=== PATIENT | female | born 1955 | race Two or more races ===

== ENCOUNTER 2024-02-21 05:30 | Inpatient (IN) | payer MEDICAID ==
[~2024-02-21] VITALS: Ht 132.1 cm; Wt 61.9 kg
[2024-02-21 06:50] LABS: Basophils # (auto) 0.1 10 ^3/uL (0-0.2); Basophils % (auto) 0.7 % (0.0-2.0); Eosinophils # (auto) 0.1 10 ^3/uL (0-0.8); Eosinophils % (auto) 0.8 % (0.0-7.0); Hematocrit 44.2 % (36.0-46.0); Hemoglobin 14.7 g/dL (12.2-16.2); Lymphocytes # (auto) 1.6 10 ^3/uL (0.4-5.4); Lymphocytes % (auto) 14.3 % (10.0-50.0); Mean Corpuscular Hemoglobin 30.8 pg (28.0-32.0); Mean Corpuscular Hgb Conc. 33.4 g/dL (32.0-36.0); Mean Corpuscular Volume 92.2 fL (80.0-100.0); Monocytes # (auto) 0.6 10 ^3/uL (0-1.3); Monocytes % (auto) 5.3 % (0.0-12.0); Neutrophils # (auto) 8.8 10 ^3/uL (1.6-8.6); Neutrophils % (auto) 78.9 % (37.0-80.0); Nucleated Red Blood Cells % 0.1 %; Red Blood Cells 4.79 10^6/uL (4.0-5.20); Red Cell Distribution Width 13.6 % (11.8-14.3); White Blood Cell 11.2 10^3/uL (4.4-10.8)
[2024-02-21 07:06] LABS: Chloride 100 mmol/L (98-107); Potassium 4.3 mmol/L (3.5-5.1); Sodium 133 mmol/L (136-145)
[2024-02-21 07:07] LABS: Anion Gap 8 (5-15); Carbon Dioxide 25 mmol/L (20-30)
[2024-02-21 07:08] LABS: Calcium 10.2 mg/dL (8.7-10.4)
[2024-02-21 07:12] LABS: Glucose 111 mg/dL (74-106)
[2024-02-21 07:25] LABS: BUN/Creatinine Ratio 15.1 (10.0-20.0); Blood Urea Nitrogen 11 mg/dL (9-23)
[2024-02-21] MEDS: ASPirin-EC 81 mg tab PO ONE (07:41)
[2024-02-21] MEDS: METOPROLOL TARTRATE 1MG/1ML-5ML VIAL IV ONE (07:45)
[2024-02-21] MEDS: SODIUM CHLORIDE 0.9% 1,000 ML IV ONE ×2 (07:45)
[2024-02-21 07:57] LABS: INR 0.98 (0.9-1.15); Partial Thromboplastin Time 29.6 SEC (24.5-34.5); Prothrombin Time 10.4 sec (9.3-11.8)
[2024-02-21 08:26] LABS: Urine Bacteria None Seen /hpf (None Seen); Urine WBC None Seen /hpf (0 - 5)
[2024-02-21 08:30] VITALS: PULSE 84; RESP 21; O2SAT 96
[2024-02-21 08:30] LABS: Urine Blood Negative /uL (Negative); Urine Clarity Clear (Clear); Urine Protein, UAD Negative (Negative); Urine Specific Gravity 1.003 (1.001-1.035); Urine Urobilinogen Normal (Negative); Urine pH 6.5 (5.0-9.0)
[2024-02-21 08:31] LABS: Urine Color Straw (Yellow)
[2024-02-21] MEDS: IOHEXOL 350 MG/ML 100ML IJ ONE (08:32)
[2024-02-21 08:44] LABS: Amphetamine Screen, Urine Neg (NEGATIVE); Barbiturate Scree,Urine Neg (NEGATIVE); Benzodiazephine Screen, Urine Neg (NEGATIVE); Cannabinoid Screen, Urine Neg (NEGATIVE); Cocaine Screen, Urine Neg (NEGATIVE); Opiate Scree,Urine Neg (NEGATIVE); Phencyclidine Screen, Urine Neg (NEGATIVE)
[2024-02-21 09:31] LABS: Basophils # (auto) 0.1 10 ^3/uL (0-0.2); Basophils % (auto) 0.6 % (0.0-2.0); Eosinophils # (auto) 0.1 10 ^3/uL (0-0.8); Eosinophils % (auto) 0.8 % (0.0-7.0); Hematocrit 43.5 % (36.0-46.0); Hemoglobin 14.4 g/dL (12.2-16.2); Lymphocytes # (auto) 2.5 10 ^3/uL (0.4-5.4); Lymphocytes % (auto) 22.2 % (10.0-50.0); Mean Corpuscular Hemoglobin 30.2 pg (28.0-32.0); Mean Corpuscular Volume 91.5 fL (80.0-100.0); Monocytes # (auto) 0.6 10 ^3/uL (0-1.3); Monocytes % (auto) 5.4 % (0.0-12.0); Neutrophils # (auto) 8.1 10 ^3/uL (1.6-8.6); Nucleated Red Blood Cells % 0.1 %; Red Blood Cells 4.75 10^6/uL (4.0-5.20); Red Cell Distribution Width 13.7 % (11.8-14.3); White Blood Cell 11.4 10^3/uL (4.4-10.8)
[2024-02-21 09:50] LABS: INR 0.99 (0.9-1.15); Partial Thromboplastin Time 30.5 SEC (24.5-34.5); Prothrombin Time 10.5 sec (9.3-11.8)
[2024-02-21 09:54] LABS: Alanine Aminotransferase 59 U/L (7-40); Albumin 3.9 g/dL (3.2-4.8); Alkaline Phosphatase 115 U/L (46-116); Anion Gap 6 (5-15); Aspartate Aminotransferase 25 U/L (13-40); BUN/Creatinine Ratio 14.3 (10.0-20.0); Bilirubin, Total 0.6 mg/dL (0.2-1.0); Blood Urea Nitrogen 10 mg/dL (9-23); Carbon Dioxide 27 mmol/L (20-30); Chloride 100 mmol/L (98-107); Glucose 104 mg/dL (74-106); Potassium 4.4 mmol/L (3.5-5.1); Sodium 133 mmol/L (136-145); Total Protein 7.7 g/dL (5.7-8.2)
[2024-02-21] MEDS ORDERED: MORPHINE SULFATE INJ 2 MG/ml SYRG IV PRN (11:00)
[2024-02-21] MEDS ORDERED: DOCUSATE SOD 100 MG CAP PO PRN (11:00)
[2024-02-21] MEDS ORDERED: ACETAMINOPHEN 325 MG TAB PO PRN (11:00)
[2024-02-21] MEDS ORDERED: NITROGLYCERIN 0.4 MG SL TAB SL PRN (11:00)
[2024-02-21] MEDS ORDERED: HYDROcodone-ACET 5/325MG TAB PO PRN (11:00)
[2024-02-21] MEDS: SODIUM CHLOR 0.9% PF (SALINE LOCK) 10ML VIAL/SYR IV SCH (14:11)
[2024-02-21] MEDS: LORazepam 2MG/ML-1ML VIAL IV ONE (14:11)
[2024-02-21 19:30] VITALS: PULSE 81; RESP 15; O2SAT 97
[2024-02-21 21:45] VITALS: BP 119/77; PULSE 81; RESP 15; TEMP 97.8; O2SAT 97
[2024-02-21 22:11] LABS: Triglycerides 156 mg/dL (< 150)
[2024-02-21 22:12] LABS: LDL Cholesterol 136 mg/dL (< 100)
[2024-02-21 22:13] LABS: Cholesterol 213 mg/dL (< 200); HDL Cholesterol 56 mg/dL (40-59)
[2024-02-21] MEDS: ATORVASTATIN 20 MG TAB PO SCH (22:44)
[2024-02-21] MEDS: CLOPIDOGREL BISULFATE 75 MG TAB PO SCH (22:45)
[2024-02-21 23:00] VITALS: BP 133/82; PULSE 80; RESP 17; TEMP 98; O2SAT 94
[2024-02-21 23:18] VITALS: BP 133/82; PULSE 68; PULSE 80; RESP 17; TEMP 98; O2SAT 94; O2SAT 98
[2024-02-22] VITALS (10 sets, daily range): BP systolic 106–128; BP diastolic 68–85; PULSE 60–89; RESP 16–18; TEMP 97.7–98.2; O2SAT 91–99
[2024-02-22 07:22] LABS: Basophils # (auto) 0.1 10 ^3/uL (0-0.2); Basophils % (auto) 1.1 % (0.0-2.0); Eosinophils # (auto) 0.2 10 ^3/uL (0-0.8); Eosinophils % (auto) 3.2 % (0.0-7.0); Hematocrit 42.5 % (36.0-46.0); Hemoglobin 14.4 g/dL (12.2-16.2); Lymphocytes # (auto) 2.3 10 ^3/uL (0.4-5.4); Lymphocytes % (auto) 35.6 % (10.0-50.0); Mean Corpuscular Hemoglobin 31.1 pg (28.0-32.0); Mean Corpuscular Hgb Conc. 33.8 g/dL (32.0-36.0); Mean Corpuscular Volume 92.2 fL (80.0-100.0); Monocytes # (auto) 0.5 10 ^3/uL (0-1.3); Monocytes % (auto) 7.8 % (0.0-12.0); Neutrophils # (auto) 3.4 10 ^3/uL (1.6-8.6); Neutrophils % (auto) 52.3 % (37.0-80.0); Nucleated Red Blood Cells % 0.2 %; Red Blood Cells 4.62 10^6/uL (4.0-5.20); White Blood Cell 6.5 10^3/uL (4.4-10.8)
[2024-02-22 07:32] LABS: Alanine Aminotransferase 50 U/L (7-40); Albumin 4.1 g/dL (3.2-4.8); Alkaline Phosphatase 110 U/L (46-116); Anion Gap 4 (5-15); Aspartate Aminotransferase 22 U/L (13-40); BUN/Creatinine Ratio 14.9 (10.0-20.0); Blood Urea Nitrogen 11 mg/dL (9-23); Calcium 9.6 mg/dL (8.5-10.1); Carbon Dioxide 28 mmol/L (20-30); Chloride 106 mmol/L (98-107); Glucose 99 mg/dL (74-106); Potassium 4.1 mmol/L (3.5-5.1); Sodium 138 mmol/L (136-145)
[2024-02-22 07:33] LABS: Bilirubin, Total 0.6 mg/dL (0.2-1.0)
[2024-02-22 07:50] LABS: CRP High Sensitivity 0.39 mg/dL (<1.0); Magnesium 2.2 mg/dL (1.6-2.6)
[2024-02-22] MEDS: ASPirin-EC 81 mg tab PO SCH (09:25)
[2024-02-22] MEDS: ENOXAPARIN SOD 40 MG/0.4 ML SYRINGE SC SCH (09:44)
[2024-02-22] MEDS: ATORVASTATIN 20 MG TAB PO SCH (22:22)
[2024-02-23 01:00] VITALS: BP 118/67; PULSE 73; RESP 18; TEMP 97.9; O2SAT 95
[2024-02-23 05:00] VITALS: BP 125/85; PULSE 72; RESP 18; TEMP 97.8; O2SAT 96
[2024-02-23 06:59] LABS: Basophils # (auto) 0.1 10 ^3/uL (0-0.2); Basophils % (auto) 1.1 % (0.0-2.0); Eosinophils # (auto) 0.2 10 ^3/uL (0-0.8); Hematocrit 43.4 % (36.0-46.0); Hemoglobin 14.5 g/dL (12.2-16.2); Lymphocytes # (auto) 2.6 10 ^3/uL (0.4-5.4); Lymphocytes % (auto) 36.2 % (10.0-50.0); Mean Corpuscular Hemoglobin 31.1 pg (28.0-32.0); Mean Corpuscular Hgb Conc. 33.4 g/dL (32.0-36.0); Monocytes # (auto) 0.6 10 ^3/uL (0-1.3); Monocytes % (auto) 9.1 % (0.0-12.0); Neutrophils # (auto) 3.6 10 ^3/uL (1.6-8.6); Neutrophils % (auto) 50.6 % (37.0-80.0); Nucleated Red Blood Cells % 0.2 %; Red Blood Cells 4.66 10^6/uL (4.0-5.20); Red Cell Distribution Width 13.8 % (11.8-14.3); White Blood Cell 7.1 10^3/uL (4.4-10.8)
[2024-02-23 07:06] LABS: Alanine Aminotransferase 50 U/L (7-40); Albumin 4.1 g/dL (3.2-4.8); Alkaline Phosphatase 104 U/L (46-116); Anion Gap 5 (5-15); Aspartate Aminotransferase 21 U/L (13-40); BUN/Creatinine Ratio 12.9 (10.0-20.0); Blood Urea Nitrogen 12 mg/dL (9-23); Calcium 9.7 mg/dL (8.7-10.4); Carbon Dioxide 28 mmol/L (20-30); Chloride 105 mmol/L (98-107); Glucose 105 mg/dL (74-106); Magnesium 2.2 mg/dL (1.6-2.6); Sodium 138 mmol/L (136-145)
[2024-02-23 07:07] LABS: Bilirubin, Total 0.6 mg/dL (0.2-1.0)
[2024-02-23 07:08] LABS: Total Protein 7.2 g/dL (5.7-8.2)
[2024-02-23 08:00] VITALS: PULSE 73; RESP 17
[2024-02-23] MEDS: LIDOCAINE VISCOUS 2% 15ML UD PO ONE (08:28)
[2024-02-23] MEDS: MIDAZOLAM HCL 2MG/2ML 2ml VIAL (1mg/ml) IV ONE (08:30)
[2024-02-23] MEDS: fentaNYL CITRATE 100 MCG/2 ML VL IV ONE (08:31)
[2024-02-23] MEDS ORDERED: ASPI-543 PO (10:18)
[2024-02-23] MEDS ORDERED: ATOR20TA50 PO (10:18)
[2024-02-23] MEDS ORDERED: CLOP75TA70 PO (10:18)
[2024-02-23] MEDS: ONDANSETRON HCL 4 MG/2 ML VIAL IV PRN (12:17)
[2024-02-23 13:00] VITALS: BP 127/67; PULSE 72; RESP 18; TEMP 98.2; O2SAT 95
== END 2024-02-23 14:30 | disposition home or self-care (01) | DRG 45 ==
LOC: ER 05:30 → TELE 10:57 → TELE-WESTW 22:50
PROVIDERS: ADMIT Internal Medicine; ATTEND Internal Medicine
PROC: B24BZZ4 Ultrasonography of Heart with Aorta, Transesophageal (ICD-10-PCS; principal; 2024-02-23)
DX: I63.9 Cerebral infarction, unspecified (principal); G81.91 Hemiplegia, unspecified affecting right dominant side; I25.3 Aneurysm of heart; G45.9 Transient cerebral ischemic attack, unspecified; D72.829 Elevated white blood cell count, unspecified; E66.9 Obesity, unspecified; F17.200 Nicotine dependence, unspecified, uncomplicated; R29.703 NIHSS score 3; E78.2 Mixed hyperlipidemia; R47.81 Slurred speech; Z82.49 Family history of ischemic heart disease and other diseases of the circulatory system; Z79.02 Long term (current) use of antithrombotics/antiplatelets; Z79.82 Long term (current) use of aspirin; Z79.899 Other long term (current) drug therapy; Z68.35 Body mass index [BMI] 35.0-35.9, adult; Q21.12 Patent foramen ovale
CPT/HCPCS: 36415; 70450; 70496; 70551; 71046; 80048; 80053; 80061; 80307; 81001; 83036; 83735; 83880; 84443; 84484; 85025; 85610; 85730; 86141; 93005; 93306; 93312; 93970; 94660; 97163; 99152; G0378; J2250; J2405